=== PATIENT | female | born 1970 | race Hispanic/Latino ===

== ENCOUNTER 2017-08-15 10:30 | Outpatient (CLI) | payer OTHER ==
[2017-08-15 11:19] LABS: Blood Urea Nitrogen 12 mg/dL (7-17)
--- NOTE | 2017-08-15 16:17 | Cat Scan Report ---
FINAL REPORT EXAM: CT PELVIS WO/W CON HISTORY: PELVIC PERINEAL PAIN TECHNIQUE: CT of the pelvis with and without IV contrast. Coronal and sagittal reconstructed imaging provided. PRIORS: None currently available. FINDINGS: [id number] stool in the sigmoid colon. Sigmoid diverticulosis noted. No wall thickening or inflammatory changes. Marked stool in the rectum. Uterus is not clearly identified and may be surgically removed, small, or atrophic. Partially distended bladder is grossly unremarkable. No wall thickening or stones No pelvic mass or adenopathy. Mildly prominent left inguinal lymph node is nonspecific and may be reactive measuring 6 x 17 mm. No adenopathy. No hernia. No mass. Right inguinal regions unremarkable. Perineum not completely imaged. Partially visualized muscles and subcutaneous soft tissues are grossly unremarkable. Bones: No suspicious osseous lesions. SI joints are unremarkable. Hips are unremarkable. Degenerative changes are present within the spine. IMPRESSION: Possible fecal impaction at the rectum. Partially visualized perineum is unremarkable.
== END 2017-08-15 10:31 | disposition home or self-care (01) ==
LOC: CT 10:30
PROVIDERS: ATTEND Obstetrics & Gynecology
DX: K57.30 Diverticulosis of large intestine without perforation or abscess without bleeding (principal); N32.89 Other specified disorders of bladder; R10.2 Pelvic and perineal pain; M47.899 Other spondylosis, site unspecified
CPT/HCPCS: 36415; 72194; 82565; 84520; Q9967

== ENCOUNTER 2017-11-29 08:01 | Outpatient (CLI) | payer OTHER ==
--- NOTE | 2017-11-29 16:18 | Mammography Report ---
BILATERAL DIGITAL SCREENING MAMMOGRAM with CAD: 11/29/17 08:01:00 CLINICAL: Routine screening. COMPARISON:None available. FINDINGS: The breasts are almost entirely fatty.Scattered bilateral benign calcifications. No mass, architectural distortion or suspicious calcifications. IMPRESSION: No mammographic evidence of malignancy. BI-RADS CATEGORY: 2 - - Benign RECOMMENDATION: Routine mammographic screening in one year. COMMENT: Patient follow-up letters are generated by our [employer] application.
== END 2017-11-29 08:02 | disposition home or self-care (01) ==
LOC: SPVWC 08:01
PROVIDERS: ATTEND Nurse Practitioner Gerontology
DX: Z12.31 Encounter for screening mammogram for malignant neoplasm of breast (principal)
CPT/HCPCS: 77067